=== PATIENT | male | born 1945 | race African-American/Black ===

== ENCOUNTER 2016-12-31 23:14 | Inpatient (IN) | payer MEDICARE ==
[2017-01-01] MEDS ORDERED: NORMAL SALINE 1000 ML 500 ML IV ONE (01:27)
--- NOTE | 2017-01-01 01:27 | ER Document Report ---
ED General - General Chief Complaint: Breathing Difficulty Stated Complaint: DIFFICULTY BREATHING Time Seen by Provider: 01/01/17 01:12 Notes: Patient is a 71-year-old male with past medical history of hypertension, hyperlipidemia, multiple myeloma currently on chemotherapy who presents with 3 days of a cough, mild intermittent shortness of breath not present at this time , and wheezing. Denies any history of similar symptoms in the past. States he has felt hot at home but has not recorded temperature. He has not contacted his primary care doctor or oncologist regarding today's concerns. He denies any history of similar symptoms in the past. No history of asthma or COPD. Nothing improves or worsens his symptoms. Patient is visiting from [place]. TRAVEL OUTSIDE OF THE [place] IN LAST 30 DAYS: No - Related Data Allergies/Adverse Reactions: No Known Allergies Allergy (Unverified 01/01/17 04:58) Past Medical History - General Information source: Patient - Social History Smoking Status: Never Smoker Frequency of alcohol use: None Drug Abuse: None Lives with: Spouse/Significant other Family History: Reviewed & Not Pertinent Renal/ Medical History: Denies: Hx Peritoneal Dialysis Review of Systems - Review of Systems Notes: Constitutional: Positive for fever. HENT: Negative for sore throat. Eyes: Negative for visual changes. Cardiovascular: Negative for chest pain. Respiratory: Negative for shortness of breath. Positive for cough Gastrointestinal: Negative for abdominal pain, vomiting or diarrhea. Genitourinary: Negative for dysuria. Musculoskeletal: Negative for back pain. Skin: Negative for rash. Neurological: Negative for headaches, weakness or numbness. 10 point ROS negative except as marked above and in HPI. Physical Exam - Vital signs Vitals: Temp Pulse Resp BP Pulse Ox 100.2 F 121 H 22 H 115/82 89 L 12/31/16 23:52 12/31/16 23:52 12/31/16 23:52 12/31/16 23:52 12/31/16 23:52 Interpretation: Tachycardic, Tachypneic Notes: PHYSICAL EXAMINATION: GENERAL: Mildly ill in appearance and in no acute distress HEAD: Atraumatic, normocephalic. EYES: Pupils equal round and reactive to light, extraocular movements intact, sclera anicteric, conjunctiva are normal. ENT: nares patent, oropharynx clear without exudates. Moderately dry mucous membranes. NECK: Normal range of motion, supple without lymphadenopathy LUNGS: Scattered rales in all lung smith with a scant expiratory wheeze. Mild tachypnea. No distress. HEART: Regular rate and rhythm without murmurs ABDOMEN: Soft, nontender, normoactive bowel sounds. No guarding, no rebound. No masses appreciated. EXTREMITIES: Normal range of motion, no pitting or edema. No cyanosis. NEUROLOGICAL: No focal neurological deficits. Moves all extremities spontaneously and on command. PSYCH: Normal mood, normal affect. SKIN: Warm, Dry, normal turgor, no rashes or lesions noted. Course - Re-evaluation Re-evalutation: 01/01/17 01:23 Patient presents with 3-4 days of cough without sputum production, sinus pressure and wheezing. He does have history of multiple myeloma and is actively on chemotherapy last dose was 5 days ago. Patient arrives mildly tachypneic, somewhat ill in appearance but otherwise nontoxic in appearance. Initial heart rate in triage was 121 although the time of my assessment on cardiac nurse specialist his heart rate is 98. Saturating 97% on room air. Lung examination shows scattered expiratory wheezing and diffuse rales. Slightly diminished in the right middle lobe. Clinical history is most consistent with likely a viral infection although given his tachycardia and immune suppressed nature concern for possible pneumonia, will proceed with labs, chest x-ray, fluids and reassess. Of note, patient denies any pleuritic pain, any shortness of breath, making an acute pulmonary embolus unlikely. 01/01/17 03:09 CXR shows findings consistent with a multifocal pneumonia. Patient remains mildly tachycardic, tachypneic. Will give levofloxacin and ceftriaxone and plan for admission. - Vital Signs Vital signs: Temp Pulse Resp BP Pulse Ox 99.5 F 121 H 28 H 125/62 95 01/01/17 05:04 12/31/16 23:52 01/01/17 05:01 01/01/17 05:01 01/01/17 05:01 - Laboratory Result Diagrams: 01/01/17 01:45 01/01/17 01:45 Laboratory results interpreted by me: 01/01/17 01/01/17 01/01/17 01:45 01:45 01:45 RBC 4.15 L Hgb 13.2 L RDW 14.6 H Plt Count 147 L Band Neutrophils % 2 L Lymphocytes % (Manual) 7 L Monocytes % (Manual) 18 H Abs Monocytes (Manual) 1.6 H Sodium 134.1 L Glucose 111 H Total Protein 6.2 L Albumin 3.3 L - Diagnostic Test Radiology reviewed: Image reviewed, Reports reviewed Radiology results interpreted by me: 01/01/17 03:11 Chest x-ray: Multifocal pneumonia. - EKG Interpretation by Me Additional EKG results interpreted by me: 01/01/17 06:01 Sinus rhythm. Rate 99. Frequent premature ventricular contractions. QTC is 457. Discharge - Discharge Clinical Impression: Multifocal pneumonia, Tachypnea Sepsis Qualifiers: Sepsis type: sepsis due to unspecified organism Qualified Code(s): A41.9 - Sepsis, unspecified organism Multiple myeloma Qualifiers: Multiple myeloma remission status: not in remission Qualified Code(s): C90.00 - Multiple myeloma not having achieved remission Condition: Fair Disposition: ADMITTED INPATIENT Admitting Provider: [facility] Unit Admitted: [facility]
[2017-01-01 02:17] LABS: ANION GAP 10 (5-19); BLOOD UREA NITROGEN 14 mg/dL (7-20); CALCIUM 8.5 mg/dL (8.4-10.2); CARBON DIOXIDE 25 mmol/L (22-30); CHLORIDE 99 mmol/L (98-107); CREATININE RESULT 0.89 mg/dL (0.52-1.25); GLUCOSE 111 mg/dL (75-110); POTASSIUM 4.1 mmol/L (3.6-5.0); SODIUM 134.1 mmol/L (137-145)
--- NOTE | 2017-01-01 02:22 | RADIOLOGY REPORT (SQ) ---
EXAM DESCRIPTION: CHEST SINGLE VIEW COMPLETED DATE/TIME: 01/01/2017 2:02 am REASON FOR STUDY: sob COMPARISON: None. EXAM PARAMETERS: NUMBER OF VIEWS: One view. TECHNIQUE: Single frontal radiographic view of the chest acquired. RADIATION DOSE: NA LIMITATIONS: None. FINDINGS: LUNGS AND PLEURA: Mild mixed interstitial and airspace opacities of both lung smith. Sma ll atelectasis or scar of the left lower lobe. Moderate lung volumes. MEDIASTINUM AND HILAR STRUCTURES: No masses. Contour normal. HEART AND VASCULAR STRUCTURES: Heart normal in size. Normal vasculature. BONES: No acute findings. HARDWARE: Right internal jugular mini port central line tip at the cavoatrial junction. OTHER: No other significant finding. IMPRESSION: Mild mixed interstitial and airspace opacities. Differential diagnosis includes mild-to -moderate pulmonary edema, multifocal pneumonia, and/or chronic interstitial lung disease. TECHNICAL DOCUMENTATION: JOB ID: [id number]
[2017-01-01 02:30] LABS: TROPONIN I < 0.012 ng/mL
[2017-01-01 02:44] LABS: HEMOGLOBIN 13.2 g/dL (13.5-17.0); HGB HCT DIFFERENCE 0.6; MEAN CORPUSCULAR HEMOGLOBIN 31.7 pg (27.0-33.4); MEAN CORPUSCULAR HGB CONC 33.7 g/dL (32.0-36.0); MEAN CORPUSCULAR VOLUME 94 fl (80-97); RED BLOOD COUNT 4.15 10^6/uL (4.35-5.55); RED CELL DISTRIBUTION WIDTH 14.6 % (11.5-14.0); WHITE BLOOD COUNT 8.8 10^3/uL (4.0-10.5)
[2017-01-01 03:00] LABS: BAND NEUTROPHILS % (MANUAL) 2 % (3-5); BASOPHILS % (MANUAL) 0 % (0-2); EOSINOPHILS % (MANUAL) 0 % (0-6); LYMPHOCYTES % (MANUAL) 7 % (13-45); TOTAL CELLS COUNTED 100
[2017-01-01 03:01] LABS: RBC MORPHOLOGY COMMENT NORMO-CYTIC/CHROMIC
[2017-01-01] MEDS ORDERED: LEVOFLOXACIN 750 MG/D5W RTU 150 ML IV ONE (03:08)
[2017-01-01] MEDS ORDERED: CEFTRIAXONE 1 GM/D5W RTU 50 ML IV ONE (03:09)
[2017-01-01] MEDS ORDERED: NORMAL SALINE 1000 ML 1,000 ML IV ONE (03:14)
[2017-01-01] MEDS ORDERED: GUAIFENESIN SYRP 200 MG/10 ML UDC PO PRN (04:45)
[2017-01-01] MEDS ORDERED: IPRATROPIUM/ALBUTEROL 0.5-2.5 MG/3 ML AMPUL NEB PRN (04:45)
[2017-01-01] MEDS ORDERED: NORMAL SALINE 1000 ML 1,000 ML IV PRN ×3 (04:51→10:18)
[2017-01-01] MEDS ORDERED: PROMETHAZINE HCL 25 MG TABLET PO PRN (04:54)
[2017-01-01] MEDS ORDERED: MAGNESIUM HYDROXIDE SUSP 30 ML UDCUP PO PRN (04:55)
[2017-01-01] MEDS ORDERED: VANCOMYCIN HCL 0 MG in DEXTROSE 5%-WATER 250 ML IV NR (05:00)
[2017-01-01 05:06] LABS: ADD ON TESTING BLD IN LAB ACKNOWLEDGE
--- NOTE | 2017-01-01 05:06 | PDOC H&P ---
History of Present Illness Admission Date/PCP: 01/01/17 03:42 OOT Patient complains of: Difficulty breathing History of Present Illness: LUDMILA FAJARDO is a 71 year old -[place] male, without chronic underlying pulmonary disease, but currently undergoing chemotherapy for multiple myeloma, last session 5 days ago, who presents to the emergency room for evaluation of a 3-4 day history of dry cough, worsening shortness of breath , in particular with much of activity, sinus pressure, and wheezing. Initial heart rate in triage was 121, saturating 97% on room air. Denies fever chills, nausea vomiting, diarrhea or dysuria. Patient has been discussed with emergency room physician who evaluated the patient. Recently traveled with his from [place] to visit his son. Laboratory results are listed in [employer] and are reviewed. X-ray summary results are listed below, with full report(s) reviewed. . EKG reviewed. No old EKG available for comparison. Social history/personal habits: . Has children. Retired. No use of alcohol tobacco or illicit drugs. Allergies/adverse reactions are listed in [employer] and are reviewed. Home medications initially autopopulated into [facility] may not accurately reflect patient's true medications, dosages, and/or frequencies. environmental field services technician to reconcile medications. Unfortunately, patient not certain of all medications/dosages/frequencies. REVIEW OF SYSTEMS: Constitutional: No fever or chills. Eyes: No vision complaints. ENT: No swallowing problems or complaints. Denies hearing loss. Pulmonary: See history and present illness. Cardiovascular: No current complaints, including chest pain. Gastrointestinal: No current complaints, including nausea or vomiting. Skin: No current complaints, including rashes. Hematologic: Denies easy bruising. Neurologic: No current complaints, including numbness or tingling. Musculoskeletal: Mild arthritis. Psychiatric: Denies anxiety or depression. Endocrine: No current complaints, including polyuria. Genitourinary: No current complaints, including dysuria. PHYSICAL EXAMINATION: 6 feet tall. 91.8 kg. BMI 27.4 kg/m. Blood pressure 110/75. Pulse 84 and regular. 94% saturation on room air. Respirations are 21 and unlabored. Temperature 100.2. Slightly overweight otherwise well-nourished well-developed -Dutch male who appears not to feel very well. Otherwise, pleasant awake alert and cooperative. Mildly anxious, without agitation. Slightly fatigued appearance. Son and are present at his side; patient approves. Skin is warm and dry. No grossly obvious evidence of rash in areas of skin examined. No subcutaneous nodules palpated. ENT: Hearing grossly normal to normal conversation. Tongue midline on protrusion pink and slightly moist. Eyes: No scleral icterus. Pupils equal and reactive to light at 3 mm. Leith-Hatfield conjunctivae. Neck is supple and nontender to gentle active range of motion and palpation. Midline trachea. No palpable thyroid nodule mass enlargement or tenderness. Lymphatic: No palpable cervical or clavicular nodes. Neck and lymphatic exams limited by patient body habitus. Psychiatric: Reasonable insight into acute and chronic medical issues. Oriented to time location and why here. Lungs: Auscultation reveals slightly coarse breath sounds bilaterally. No use of accessory respiratory muscles. Perhaps slightly decreased breath sounds right mid lung field. Cardiovascular: Heart regular rate and rhythm, without gallop murmur or rub. No carotid or abdominal aortic bruits. No ankle or pedal edema. Palpable dorsalis pedis pulses. Abdomen:soft slightly distended nontender with positive bowel sounds. Unable to adequately evaluate abdomen for masses or organomegaly due to distention. Extremities: Feet are warm and dry. No calf tenderness to compression. No grossly obvious visual evidence of calf swelling. Gentle manipulation of lower extremities fails to reveal any obvious evidence of injury or instability to knees hips or ankles. Neurologic: Moves upper extremities grossly normally. Patellar reflexes absent. Absent Babinski. Light touch is intact at feet. Dorsiflexion and plantarflexion of feet 5 / 5 and symmetric. Past Medical History Cardiac Medical History: Reports: Congestive Heart Failure, Myocardial Infarction, Hyperlipidema, Hypertension Denies: Atrial Fibrillation, DVT, Pulmonary Embolism Pulmonary Medical History: Denies: Asthma, Chronic Obstructive Pulmonary Disease (COPD), Sleep Apnea EENT Medical History: Denies: Eyes, Ears, Throat Neurological Medical History: Denies: Hemorrhagic CVA, Ischemic CVA, Seizures Endocrine Medical History: Denies: Diabetes Mellitus Type 1, Diabetes Mellitus Type 2, Hyperthyroidism, Hypothyroidism Renal/ Medical History: Reports: None Malignancy Medical History: Reports: Other - Multiple myeloma, undergoing active chemotherapy. GI Medical History: Denies: Cirrhosis, Gastroesophageal Reflux Disease, Hepatitis, Peptic Ulcer Disease Musculoskeltal Medical History: Reports: Arthritis Skin Medical History: Reports: None Psychiatric Medical History: Denies: Alcohol Dependency, Depression, General Anxiety Disorder, Substance Abuse, Tobacco Dependency Infectious Medical History: Denies: Clostridium Difficile, Hepatitis B, Hepatitis C, Methicillin- Resistant Staph Aureus Past Surgical History Past Surgical History: Reports: None Social History Information Source: Patient, Emergency Med Personnel, [facility] Records Lives with: Spouse/Significant other Smoking Status: Unknown if Ever Smoked Frequency of Alcohol Use: None Drugs: None - Advance Directive Resuscitation Status: Full Code Surrogate healthcare decision maker:: Family History Parental Family History Reviewed: Yes - Father of gunshot wound; mother of old age. Children Family History Reviewed: Yes - Healthy Sibling(s) Family History Reviewed.: Yes - Hypertension Medication/Allergy Home Medications: Acyclovir [Zovirax 200 mg Capsule] 200 mg PO Q8 01/01/17 Aspirin [Ecotrin 325 mg EC Tablet] 325 mg PO DAILY 01/01/17 Calcium Carbonate/Vitamin D3 [Calcium 600 + Vit D 400 Tablet] 1 tab PO DAILY 11/13 Carvedilol [Coreg 3.125 mg Tablet] 3.125 mg PO Q12 01/01/17 Dexamethasone [Decadron 4 mg Tablet] 4 mg PO ASDIR 01/01/17 Furosemide [Lasix 20 mg Tablet] 20 mg PO DAILY 01/01/17 Hydrocodone Bit/Acetaminophen [Hydrocodon-Acetaminophn 10-325] 1 tab PO Q6HP PRN 01/01/17 Lenalidomide [Revlimid] 15 mg PO ASDIR 01/01/17 Lisinopril [Prinivil 10 mg Tablet] 10 mg PO DAILY 01/01/17 Simvastatin 40 mg PO DAILY 01/01/17 Spironolactone [Aldactone 25 mg Tablet] 25 mg PO DAILY 01/01/17 Colchicine [Colcrys 0.6 mg Tablet] 0.6 mg PO Q12 #10 tablet 01/04/17 Levofloxacin [Levaquin 750 mg Tablet] 750 mg PO DAILY #10 tab 01/04/17 Prednisone [Deltasone 20 mg Tablet] 40 mg PO DAILY #10 tablet 01/04/17 Allergies/Adverse Reactions: No Known Allergies Allergy (Unverified 01/01/17 04:58) Physical Exam Vital Signs: Temp Pulse Resp BP Pulse Ox 100.2 F 121 H 23 H 103/60 96 12/31/16 23:52 12/31/16 23:52 01/01/17 02:01 01/01/17 02:01 01/01/17 02:01 Results Impressions: Chest X-Ray 01/01/17 01:13 IMPRESSION: Mild mixed interstitial and airspace opacities. Differential diagnosis includes [id number] pulmonary edema, multifocal pneumonia, and/ or chronic interstitial lung disease. Assessment & Plan - Diagnosis (1) CHF (congestive heart failure) Qualifiers: Congestive heart failure type: unspecified congestive heart failure type Congestive heart failure chronicity: chronic Qualified Code(s): I50.9 - Heart failure, unspecified Is this a current diagnosis for this admission?: YesPlan: No evidence of acute exacerbation of same. Resume home medications as appropriate once these have been determined and reviewed. (2) HLD (hyperlipidemia) Qualifiers: Hyperlipidemia type: unspecified Qualified Code(s): E78.5 - Hyperlipidemia, unspecified Is this a current diagnosis for this admission?: YesPlan: Resume home medications as appropriate once these have been determined and reviewed. (3) HTN (hypertension) Qualifiers: Hypertension type: essential hypertension Qualified Code(s): I10 - Essential (primary) hypertension Is this a current diagnosis for this admission?: YesPlan: Resume home medications as appropriate once these have been determined and reviewed. 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 Incentive spirometry twice a day. As needed DuoNeb's. Antibiotics will consist of intravenous vancomycin and Levaquin, along with cefepime, given his immunosuppressed state. Pharmacy to assist with vancomycin dosing. I strongly encouraged patient to notify staff should patient feel that breathing is worsening. Patient is a full code. I have strongly encouraged patient not to get out of bed without notifying staff , to avoid a fall with injury. Knee high SCDs for DVT prophylaxis, along with subcutaneous Lovenox. Impression and plans were discussed with patient and son, all of whom concur Time spent in evaluation and management of patient: 67 minutes. (6) Sepsis Qualifiers: Sepsis type: sepsis due to unspecified organism Qualified Code(s): A41.9 - Sepsis, unspecified organism Is this a current diagnosis for this admission?: Yes (7) Multiple myeloma Qualifiers: Multiple myeloma remission status: not in remission Qualified Code(s ): C90.00 - Multiple myeloma not having achieved remission Is this a current diagnosis for this admission?: YesPlan: Oncology consult. - Time Time Spent: 50 to 70 Minutes Anticipated discharge: Home Within: Other - Inpatient Certification Based on my medical assessment, after consideration of the patient's comorbidities, presenting symptoms, or acuity I expect that the services needed warrant INPATIENT care.: Yes I certify that my determination is in accordance with my understanding of Medicare's requirements for reasonable and necessary INPATIENT services [42 CFR 412.3e].: Yes Medical Necessity: Significant Comorbidiites Make Outpatient Treatment Too Risky , Need Close Monitoring Due to Risk of Patient Decompensation, Need For IV Fluids, Need for Nebulizer Therapy and Monitoring of Response, Need for IV Antibiotics, Risk of Diagnosis Which Will Require Inpatient Eval/Care/Monitoring Post Hospital Care: D/C or Transfer Summary
[2017-01-01] MEDS ORDERED: VANCOMYCIN HCL INJ 1000 MG VIAL IV PRN (05:15)
[2017-01-01 05:26] LABS: ALANINE AMINOTRANSFERASE 30 U/L (21-72); ALBUMIN 3.3 g/dL (3.5-5.0); ALKALINE PHOSPHATASE 68 U/L (38-126); ASPARTATE AMINO TRANSFERASE 17 U/L (17-59); BILIRUBIN,DIRECT 0.4 mg/dL (0.0-0.4); BILIRUBIN,TOTAL 0.8 mg/dL (0.2-1.3); MAGNESIUM 1.9 mg/dL (1.6-2.3); TOTAL PROTEIN 6.2 g/dL (6.3-8.2)
[2017-01-01] MEDS ORDERED: VANCOMYCIN HCL 2,000 MG in DEXTROSE 5%-WATER 500 ML IV ONE ×2 (06:00→08:00)
[2017-01-01 07:08] LABS: ANION GAP 8 (5-19); BLOOD UREA NITROGEN 13 mg/dL (7-20); CALCIUM 7.9 mg/dL (8.4-10.2); CARBON DIOXIDE 24 mmol/L (22-30); CHLORIDE 102 mmol/L (98-107); CREATININE RESULT 0.77 mg/dL (0.52-1.25); GLUCOSE 100 mg/dL (75-110); POTASSIUM 4.7 mmol/L (3.6-5.0); SODIUM 133.7 mmol/L (137-145)
[2017-01-01] MEDS ORDERED: VANCOMYCIN HCL 1,000 MG in DEXTROSE 5%-WATER 250 ML IV ONE (08:00)
--- NOTE | 2017-01-01 08:12 | EKG REPORT ---
SEVERITY:- ABNORMAL ECG - SINUS TACHYCARDIA MULTIPLE VENTRICULAR PREMATURE COMPLEXES LEFT VENTRICULAR HYPERTROPHY : Confirmed by: Nixon Whyte MD 01-Jan-2017 08:11:37
[2017-01-01 11:09] LABS: APPEARANCE,URINE CLEAR; BILIRUBIN,URINE NEGATIVE (NEGATIVE); GLUCOSE, URINE 50 mg/dL (NEGATIVE); KETONES,URINE TRACE mg/dL (NEGATIVE); LEUKOCYTE ESTERASE,URINE NEGATIVE (NEGATIVE); NITRITE,URINE NEGATIVE (NEGATIVE); PROTEIN,URINE NEGATIVE (NEGATIVE); URINE SPECIFIC GRAVITY 1.017
[2017-01-01] MEDS: ENOXAPARIN SODIUM INJ 40 MG/0.4 ML DISP.SYRIN SUBCUT SCH (13:02)
[2017-01-01] MEDS: DOCUSATE SODIUM 100 MG CAPSULE PO SCH ×2 (13:03→17:49)
[2017-01-01] MEDS ORDERED: HYDROCODONE/ACETAMINOPHEN 10-325 MG TABLET PO PRN (14:43)
[2017-01-01] MEDS: VANCOMYCIN HCL 1,000 MG in DEXTROSE 5%-WATER 250 ML IV SCH ×2 (14:59→21:42)
--- NOTE | 2017-01-01 16:08 | CONSULTATION REPORT E ---
Consultation Report NAME: LUDMILA FAJARDO : 1945 AGE: 71Y DATE: 01/01/2017 315 A TO: BEVERLEY MERIDA M.D. FROM: HERB CABALLERO M.D. Requesting Physician REASON FOR CONSULTATION: The patient admitted with possible pneumonia. HISTORY OF PRESENT ILLNESS: He tells me that he is in transit, visiting his son here in [place], [place]. He is also scheduled to go to [place], [place], to visit his other son. He tells me his next chemotherapy cycle begins middle of December. He was diagnosed with multiple myeloma about 7 months ago which involved his left shoulder. He states that following a couple of cycles of chemotherapy his left shoulder symptoms improved and doctors were very happy with the results. He was not able to tell me exactly the names of the regimen, but it appears to be a Velcade based regimen. He has a pill that he takes by mouth included in the chemotherapy, also Revlimid which he takes for 14 days out of every 21 days. He was admitted with symptoms of difficulty breathing. He feels a lot better at the time I was seeing him today. PAST MEDICAL HISTORY: As stated above, includes a history of multiple myeloma. He has a history of coronary artery disease, congestive heart failure, COPD. PHYSICAL EXAMINATION: GENERAL: He is an elderly man. He is not acutely ill looking. He was seen breathing comfortably in bed. VITAL SIGNS: His T-max is 100.2, respiratory rate 42 per minute, blood pressure 103/60, heart rate 80 per minute. LABORATORY DATA: His chest x-ray January 01, 2017: Mixed and interstitial airspace opacity. Differential diagnosis includes mild to moderate pulmonary edema, multifocal pneumonia, chronic interstitial lung disease. Labs: White count is 8.8, hemoglobin 13.2, platelet count 147. Sodium 134, potassium 4.1, calcium 8.5, total protein 6.2, albumin 3.3. IMPRESSION/PLAN: The patient is a 71-year-old man who was admitted with possible upper respiratory tract infection in the setting of underlying multiple myeloma. It is unusual for patients with multiple myeloma to present with upper respiratory infection. I agree with his treatment so far. Antibiotics should be maximized. When afebrile he should be switched to oral antibiotics and possibly continued over the next 10 days. His blood counts are reasonable. He returns to his primary oncologist in about 2 weeks and that should be adequate. I thank you for this consultation and allowing me to be part of his clinical care. DICTATING PHYSICIAN: BEVERLEY MERIDA M.D. [id number] [id number] ID: [id number] JOB#: [id number] ACCT: [id number] cc:BEVERLEY MERIDA M.D. >
[2017-01-01] MEDS: CARVEDILOL 3.125 MG TABLET PO SCH (21:41)
[2017-01-01] MEDS: SIMVASTATIN 40 MG TABLET PO SCH (21:41)
[2017-01-01] MEDS: ACYCLOVIR 200 MG CAPSULE PO SCH (21:41)
[2017-01-01] MEDS: CEFEPIME 2 GM/D5W RTU 2 GM/50 ML RTUPB IV SCH (21:42)
[2017-01-01] MEDS: GUAIFENESIN 600 MG TABLET.SA PO SCH (21:42)
[2017-01-01] MEDS: LEVOFLOXACIN 750 MG/D5W RTU 750 MG/150 ML RTUPB IV SCH (21:50)
[2017-01-02] MEDS: VANCOMYCIN HCL 1,000 MG in DEXTROSE 5%-WATER 250 ML IV SCH (05:44)
[2017-01-02] MEDS: ACYCLOVIR 200 MG CAPSULE PO SCH ×3 (05:44→21:15)
[2017-01-02 06:16] LABS: HEMATOCRIT 33.4 % (37.9-51.0); HEMOGLOBIN 11.3 g/dL (13.5-17.0); HGB HCT DIFFERENCE 0.5; MEAN CORPUSCULAR HGB CONC 33.8 g/dL (32.0-36.0); MEAN CORPUSCULAR VOLUME 95 fl (80-97); RED BLOOD COUNT 3.52 10^6/uL (4.35-5.55); WHITE BLOOD COUNT 5.3 10^3/uL (4.0-10.5)
[2017-01-02 06:40] LABS: BAND NEUTROPHILS % (MANUAL) 1 % (3-5); BASOPHILS % (MANUAL) 0 % (0-2); EOSINOPHILS % (MANUAL) 4 % (0-6); LYMPHOCYTES % (MANUAL) 15 % (13-45); TOTAL CELLS COUNTED 100
[2017-01-02 06:41] LABS: ANISOCYTOSIS SLIGHT; BURR CELLS SLIGHT; POIKILOCYTOSIS SLIGHT; POLYCHROMASIA SLIGHT; TOXIC GRANULATION SLIGHT
[2017-01-02 06:42] LABS: OVALOCYTES SLIGHT
[2017-01-02 07:02] LABS: ANION GAP 7 (5-19); BLOOD UREA NITROGEN 8 mg/dL (7-20); CALCIUM 7.6 mg/dL (8.4-10.2); CARBON DIOXIDE 24 mmol/L (22-30); CHLORIDE 104 mmol/L (98-107); CREATININE RESULT 0.67 mg/dL (0.52-1.25); GLUCOSE 93 mg/dL (75-110); POTASSIUM 4.1 mmol/L (3.6-5.0)
[2017-01-02] MEDS: ENOXAPARIN SODIUM INJ 40 MG/0.4 ML DISP.SYRIN SUBCUT SCH (09:48)
[2017-01-02] MEDS: ASPIRIN 325 MG TABLET, ENT COATED PO SCH (09:49)
[2017-01-02] MEDS: CALCIUM CARBONATE 250 MG/VITAMIN D3 125 UNIT TABLET PO SCH (09:49)
[2017-01-02] MEDS: GUAIFENESIN 600 MG TABLET.SA PO SCH ×2 (09:50→21:16)
[2017-01-02] MEDS: CARVEDILOL 3.125 MG TABLET PO SCH ×2 (09:50→21:16)
[2017-01-02] MEDS: DOCUSATE SODIUM 100 MG CAPSULE PO SCH ×2 (09:50→17:38)
[2017-01-02] MEDS: LISINOPRIL 10 MG TABLET PO SCH (09:50)
[2017-01-02] MEDS: FUROSEMIDE 20 MG TABLET PO SCH (09:51)
[2017-01-02] MEDS: SPIRONOLACTONE 25 MG TABLET PO SCH (09:51)
[2017-01-02] MEDS: CEFEPIME 2 GM/D5W RTU 2 GM/50 ML RTUPB IV SCH ×2 (09:52→21:14)
[2017-01-02] MEDS ORDERED: (PENDING PHARMACY ID) (Calcium Carbonate/Vitamin D3 [Calcium 600 + Vit D 400 Tablet] 1 TAB PO SCH (10:00)
[2017-01-02] MEDS ORDERED: FUROSEMIDE INJ/PF 20 MG/2 ML SDV IV ONE ×2 (10:15→16:00)
--- NOTE | 2017-01-02 12:23 | PDOC PROGRESS REPORT ---
Subjective Progress Note for:: 01/02/17 Subjective:: Patient denies any new complaints. Physical Exam Vital Signs: Temp Pulse Resp BP Pulse Ox 98.3 F 69 12 115/70 94 01/02/17 04:39 01/02/17 04:39 01/02/17 04:39 01/02/17 04:39 01/02/17 04:39 Intake & Output 01/01/17 01/02/17 01/03/17 06:59 06:59 06:59 Intake Total 4775 Output Total 1225 Balance 3550 Weight 92.3 kg 90 kg Exam: GENERAL: No acute distress HEENT: Conjunctiva clear, nonicteric, moist mucous membranes, no JVD, midline trachea RESPIRATORY: Bilateral end expiratory wheezes CARDIAC: Regular rate and rhythm, no gallops/rubs; +2/6 SM LLSB ABDOMEN: soft, nondistended, NTTP, +BSx4 EXTREMETIES: No cyanosis, clubbing; 1+ edema NEUROLOGIC: Alert, oriented to person/place/time, CN's grossly intact, no focal deficits SKIN: No rash, wounds PSYCH: Normal mood, normal affect Results Laboratory Results: 01/02/17 05:50 01/02/17 05:50 01/01/17 01/02/17 01/02/17 10:25 05:50 05:50 WBC 5.3 RBC 3.52 L Hgb 11.3 L Hct 33.4 L MCV 95 MCH 32.0 MCHC 33.8 RDW 15.0 H Plt Count 146 L Seg Neutrophils % Not Reportable Lymphocytes % Not Reportable Monocytes % Not Reportable Eosinophils % Not Reportable Basophils % Not Reportable Absolute Neutrophils Not Reportable Absolute Lymphocytes Not Reportable Absolute Monocytes Not Reportable Absolute Eosinophils Not Reportable Absolute Basophils Not Reportable Sodium 135.0 L Potassium 4.1 Chloride 104 Carbon Dioxide 24 Anion Gap 7 BUN 8 Creatinine 0.67 Est GFR ( Amer) > 60 Est GFR (Non-Af Amer) > 60 Glucose 93 Calcium 7.6 L Urine Color YELLOW Urine Appearance CLEAR Urine pH 6.0 Ur Specific [place] 1.017 Urine Protein NEGATIVE Urine Glucose (UA) 50 H Urine Ketones TRACE H Urine Blood NEGATIVE Urine Nitrite NEGATIVE Ur Leukocyte Esterase NEGATIVE Urine WBC (Auto) 1 Urine RBC (Auto) 2 Impressions: Chest X-Ray 01/01/17 01:13 IMPRESSION: Mild mixed interstitial and airspace opacities. Differential diagnosis includes [id number] pulmonary edema, multifocal pneumonia, and/ or chronic interstitial lung disease. Assessment & Plan - Diagnosis (1) Sepsis Qualifiers: Sepsis type: sepsis due to unspecified organism Qualified Code(s): A41.9 - Sepsis, unspecified organism Is this a current diagnosis for this admission?: YesPlan: Patient with sepsis secondary to multifocal pneumonia. (2) Multifocal pneumonia Is this a current diagnosis for this admission?: YesPlan: Multifocal pneumonia likely secondary to atypical organism. Urine Legionella antigen pending Sputum culture pending. Currently on cefepime, Levaquin, and vancomycin secondary to immune compromise status. Aggressive pulmonary toileting and encourage incentive spirometry and flutter valve. (3) Multiple myeloma Qualifiers: Multiple myeloma remission status: not in remission Qualified Code(s): C90.00 - Multiple myeloma not having achieved remission Is this a current diagnosis for this admission?: YesPlan: Appreciate oncology input. Patient is currently receiving chemotherapy as an outpatient in [place]. Patient will need to follow-up with his oncologist upon return to [place]. 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 Patient on Coreg, lisinopril, and lasix as an outpatient. Stop IVF and resume lasix. (6) HLD (hyperlipidemia) Qualifiers: Hyperlipidemia type: unspecified Qualified Code(s): E78.5 - Hyperlipidemia, unspecified Is this a current diagnosis for this admission?: YesPlan: COntinue zocor (7) HTN (hypertension) Qualifiers: Hypertension type: essential hypertension Qualified Code(s): I10 - Essential (primary) hypertension Is this a current diagnosis for this admission?: YesPlan: Currently well controlled. - Time Time Spent with patient: 25-34 minutes Medications reviewed and adjusted accordingly: Yes
[2017-01-02] MEDS: VANCOMYCIN HCL 1,500 MG in DEXTROSE 5%-WATER 250 ML IV SCH ×2 (14:28→21:15)
[2017-01-02] MEDS: ACETAMINOPHEN 325 MG TABLET PO PRN (14:30)
[2017-01-02] MEDS: LEVOFLOXACIN 750 MG/D5W RTU 750 MG/150 ML RTUPB IV SCH (21:14)
[2017-01-02] MEDS: SIMVASTATIN 40 MG TABLET PO SCH (21:15)
[2017-01-03 05:01] LABS: HEMATOCRIT 33.1 % (37.9-51.0); HEMOGLOBIN 11.3 g/dL (13.5-17.0); HGB HCT DIFFERENCE 0.8; MEAN CORPUSCULAR HEMOGLOBIN 31.8 pg (27.0-33.4); MEAN CORPUSCULAR HGB CONC 34.2 g/dL (32.0-36.0); MEAN CORPUSCULAR VOLUME 93 fl (80-97); RED BLOOD COUNT 3.57 10^6/uL (4.35-5.55); RED CELL DISTRIBUTION WIDTH 14.3 % (11.5-14.0); WHITE BLOOD COUNT 6.2 10^3/uL (4.0-10.5)
[2017-01-03] MEDS: ACYCLOVIR 200 MG CAPSULE PO SCH ×3 (05:01→21:07)
[2017-01-03] MEDS: VANCOMYCIN HCL 1,500 MG in DEXTROSE 5%-WATER 250 ML IV SCH ×3 (05:02→21:08)
[2017-01-03 05:19] LABS: ANION GAP 8 (5-19); BLOOD UREA NITROGEN 11 mg/dL (7-20); CALCIUM 8.1 mg/dL (8.4-10.2); CARBON DIOXIDE 25 mmol/L (22-30); CHLORIDE 101 mmol/L (98-107); CREATININE RESULT 0.81 mg/dL (0.52-1.25); GLUCOSE 96 mg/dL (75-110); MAGNESIUM 1.8 mg/dL (1.6-2.3); POTASSIUM 3.9 mmol/L (3.6-5.0); SODIUM 133.8 mmol/L (137-145)
[2017-01-03 05:24] LABS: BAND NEUTROPHILS % (MANUAL) 1 % (3-5); BASOPHILS % (MANUAL) 0 % (0-2); EOSINOPHILS % (MANUAL) 4 % (0-6); LYMPHOCYTES % (MANUAL) 10 % (13-45); TOTAL CELLS COUNTED 100
[2017-01-03 05:25] LABS: ROULEAUX SLIGHT; TOXIC VACUOLATION PRESENT
[2017-01-03 05:26] LABS: ANISOCYTOSIS SLIGHT; POIKILOCYTOSIS SLIGHT
[2017-01-03] MEDS: ACETAMINOPHEN 325 MG TABLET PO PRN (08:50)
--- NOTE | 2017-01-03 09:04 | RADIOLOGY REPORT (SQ) ---
EXAM DESCRIPTION: CHEST PA/LAT COMPLETED DATE/TIME: 01/03/2017 8:37 am REASON FOR STUDY: multifocal pneumonia COMPARISON: AP chest 01/01/2017 EXAM PARAMETERS: NUMBER OF VIEWS: two views TECHNIQUE: Digital Frontal and Lateral radiographic views of the chest acquired. RADIATION DOSE: NA LIMITATIONS: none FINDINGS: LUNGS AND PLEURA: Bronchiectasis and scarring in the right middle lobe and medial aspects of the right and left lung apices. Bandlike scarring left retrocardiac region. No fluffy alveolar infiltrates worrisome for edema. No dense consolidation worrisome for lobar pneum onia. No pleural effusions. No pneumothorax. MEDIASTINUM AND HILAR STRUCTURES: No masses or contour abnormalities. HEART AND VASCULAR STRUCTURES: Heart normal size. No evidence for failure. BONES: Chronic appearing Fracture distal left clavicle with mixed lytic and sclerotic lesion, suspect a pathologic fracture. HARDWARE: Right-sided permanent central line tip superior vena cava OTHER: No other significant finding. IMPRESSION: Probably chronic bronchiectasis and scarring bilaterally Chronic appearing fracture distal 3rd left clavicle with mixed lytic and sclerotic pattern, question pathologic fracture TECHNICAL DOCUMENTATION: JOB ID: [id number]- All Rights Reserved
[2017-01-03] MEDS: CEFEPIME 2 GM/D5W RTU 2 GM/50 ML RTUPB IV SCH ×2 (09:22→21:10)
[2017-01-03] MEDS: CARVEDILOL 3.125 MG TABLET PO SCH ×2 (09:23→21:07)
[2017-01-03] MEDS: FUROSEMIDE 20 MG TABLET PO SCH (09:23)
[2017-01-03] MEDS: LISINOPRIL 10 MG TABLET PO SCH (09:23)
[2017-01-03] MEDS: CALCIUM CARBONATE 250 MG/VITAMIN D3 125 UNIT TABLET PO SCH (09:23)
[2017-01-03] MEDS: ASPIRIN 325 MG TABLET, ENT COATED PO SCH (09:23)
[2017-01-03] MEDS: SPIRONOLACTONE 25 MG TABLET PO SCH (09:24)
[2017-01-03] MEDS: ENOXAPARIN SODIUM INJ 40 MG/0.4 ML DISP.SYRIN SUBCUT SCH (09:24)
[2017-01-03] MEDS: GUAIFENESIN 600 MG TABLET.SA PO SCH ×2 (09:24→21:08)
[2017-01-03] MEDS: DOCUSATE SODIUM 100 MG CAPSULE PO SCH ×2 (09:30→17:41)
[2017-01-03] MEDS ORDERED: PREDNISONE 20 MG TABLET PO ONE (12:15)
[2017-01-03] MEDS ORDERED: COLCHICINE 0.6 MG TABLET PO ONE (12:15)
--- NOTE | 2017-01-03 12:28 | RADIOLOGY REPORT (SQ) ---
EXAM DESCRIPTION: FOOT RIGHT 2 VIEWS COMPLETED DATE/TIME: 01/03/2017 12:08 pm REASON FOR STUDY: swelling, pain COMPARISON: None. NUMBER OF VIEWS: Two views. TECHNIQUE: AP and lateral radiographic images acquired of the right foot. LIMITATIONS: None. FINDINGS: MINERALIZATION: Osteopenic BONES: No fracture. No lytic or blastic lesions. Small plantar calcaneal spur. JOINTS: No effusions. SOFT TISSUES: Mild forefoot soft tissue swelling. No radiopaque foreign body or soft tissue gas. OTHER: No other significant finding. IMPRESSION: Mild forefoot soft tissue swelling. No fracture or malalignment. TECHNICAL DOCUMENTATION: JOB ID: [id number] [employer]- All Rights Reserved
--- NOTE | 2017-01-03 16:07 | PDOC PROGRESS REPORT ---
Subjective Progress Note for:: 01/03/17 Subjective:: Patient complains of right elbow and right ankle swelling. Patient denies chest pain, SOB, n/v, f/c, new onset weakness. Tmax in the last 24 hours is 100 degrees F. Physical Exam Vital Signs: Temp Pulse Resp BP Pulse Ox 99.0 F 83 20 120/62 95 01/03/17 05:03 01/03/17 05:03 01/03/17 05:03 01/03/17 05:03 01/03/17 05:03 Intake & Output 01/02/17 01/03/17 01/04/17 06:59 06:59 06:59 Intake Total 4775 2245 Output Total 1225 900 Balance 3550 1345 Weight 90 kg Exam: GENERAL: No acute distress HEENT: Conjunctiva clear, nonicteric, moist mucous membranes, no JVD, midline trachea RESPIRATORY: Left upper lobe end expiratory wheezes CARDIAC: Regular rate and rhythm, no gallops/rubs; +2/6 SM LLSB ABDOMEN: soft, nondistended, NTTP, +BSx4 EXTREMETIES: No cyanosis, clubbing, edema MUSCULOSKELETAL: Right warm erythematous elbow and ankle NEUROLOGIC: Alert, oriented to person/place/time, CN's grossly intact, no focal deficits SKIN: No rash, wounds PSYCH: Normal mood, normal affect Results Laboratory Results: 01/03/17 04:00 01/03/17 04:00 01/03/17 01/03/17 04:00 04:00 WBC 6.2 RBC 3.57 L Hgb 11.3 L Hct 33.1 L MCV 93 MCH 31.8 MCHC 34.2 RDW 14.3 H Plt Count 178 Seg Neutrophils % Not Reportable Lymphocytes % Not Reportable Monocytes % Not Reportable Eosinophils % Not Reportable Basophils % Not Reportable Absolute Neutrophils Not Reportable Absolute Lymphocytes Not Reportable Absolute Monocytes Not Reportable Absolute Eosinophils Not Reportable Absolute Basophils Not Reportable Sodium 133.8 L Potassium 3.9 Chloride 101 Carbon Dioxide 25 Anion Gap 8 BUN 11 Creatinine 0.81 Est GFR ( Amer) > 60 Est GFR (Non-Af Amer) > 60 Glucose 96 Calcium 8.1 L Magnesium 1.8 01/01/17 10:25 Clean Catch Midstream Legionella Urinary Antigen - Final Impressions: Chest X-Ray 01/01/17 01:13 IMPRESSION: Mild mixed interstitial and airspace opacities. Differential diagnosis includes [id number] pulmonary edema, multifocal pneumonia, and/ or chronic interstitial lung disease. Assessment & Plan - Diagnosis (1) Sepsis Qualifiers: Sepsis type: sepsis due to unspecified organism Qualified Code(s): A41.9 - Sepsis, unspecified organism Is this a current diagnosis for this admission?: YesPlan: Patient with sepsis secondary to multifocal pneumonia. All cultures are currently negative (2) Multifocal pneumonia Is this a current diagnosis for this admission?: YesPlan: Multifocal pneumonia likely secondary to atypical organism. Urine Legionella antigen negative Sputum culture pending. Currently on cefepime, Levaquin, and vancomycin secondary to immune compromise status. Aggressive pulmonary toileting and encourage incentive spirometry and flutter valve. (3) Multiple myeloma Qualifiers: Multiple myeloma remission status: not in remission Qualified Code(s ): C90.00 - Multiple myeloma not having achieved remission Is this a current diagnosis for this admission?: YesPlan: Appreciate oncology input. Patient is currently receiving chemotherapy as an outpatient in [place]. Patient will need to follow-up with his oncologist upon return to [place]. 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 On Coreg, lisinopril, and lasix. Currently compensated. (6) HLD (hyperlipidemia) Qualifiers: Hyperlipidemia type: unspecified Qualified Code(s): E78.5 - Hyperlipidemia, unspecified Is this a current diagnosis for this admission?: YesPlan: COntinue zocor (7) HTN (hypertension) Qualifiers: Hypertension type: essential hypertension Qualified Code(s): I10 - Essential (primary) hypertension Is this a current diagnosis for this admission?: YesPlan: Currently well controlled. (8) Gout Qualifiers: Gout site: multiple sites Gout etiology: unspecified cause Chronicity: acute Qualified Code(s): M10.9 - Gout, unspecified Is this a current diagnosis for this admission?: YesPlan: Check a uric acid and start patient on colchicine and prednisone. Check x-ray of foot. - Time Time Spent with patient: 25-34 minutes Medications reviewed and adjusted accordingly: Yes Anticipated discharge: Home Within: within 48 hours
[2017-01-03] MEDS: SIMVASTATIN 40 MG TABLET PO SCH (21:07)
[2017-01-03] MEDS: COLCHICINE 0.6 MG TABLET PO SCH (21:07)
[2017-01-03] MEDS: LEVOFLOXACIN 750 MG/D5W RTU 750 MG/150 ML RTUPB IV SCH (21:09)
[2017-01-04 04:30] LABS: ABSOLUTE LYMPHOCYTES (AUTO) 0.7 10^3/uL (0.5-4.7); ABSOLUTE MONOCYTES (AUTO) 1.2 10^3/uL (0.1-1.4); ABSOLUTE NEUT (AUTO) 5.5 10^3/uL (1.7-8.2); BASOPHILS % (AUTO) 0.3 % (0-2); EOSINOPHILS % (AUTO) 0.1 % (0-6); HEMATOCRIT 33.4 % (37.9-51.0); HEMOGLOBIN 11.3 g/dL (13.5-17.0); HGB HCT DIFFERENCE 0.5; LYMPHOCYTES % (AUTO) 9.6 % (13-45); MEAN CORPUSCULAR HEMOGLOBIN 31.5 pg (27.0-33.4); MEAN CORPUSCULAR HGB CONC 33.8 g/dL (32.0-36.0); MEAN CORPUSCULAR VOLUME 93 fl (80-97); MONOCYTES % (AUTO) 16.5 % (3-13); RED BLOOD COUNT 3.58 10^6/uL (4.35-5.55); RED CELL DISTRIBUTION WIDTH 14.3 % (11.5-14.0); SEGMENTED NEUTROPHILS % (AUTO) 73.5 % (42-78); WHITE BLOOD COUNT 7.5 10^3/uL (4.0-10.5)
[2017-01-04] MEDS: VANCOMYCIN HCL 1,500 MG in DEXTROSE 5%-WATER 250 ML IV SCH (05:01)
[2017-01-04] MEDS: ACYCLOVIR 200 MG CAPSULE PO SCH (05:01)
[2017-01-04 05:16] LABS: ANION GAP 10 (5-19); BLOOD UREA NITROGEN 11 mg/dL (7-20); CALCIUM 9.1 mg/dL (8.4-10.2); CARBON DIOXIDE 25 mmol/L (22-30); CHLORIDE 101 mmol/L (98-107); CREATININE RESULT 0.68 mg/dL (0.52-1.25); GLUCOSE 100 mg/dL (75-110); MAGNESIUM 1.8 mg/dL (1.6-2.3); POTASSIUM 4.2 mmol/L (3.6-5.0); SODIUM 136.4 mmol/L (137-145)
[2017-01-04] MEDS: CARVEDILOL 3.125 MG TABLET PO SCH (09:13)
[2017-01-04] MEDS: SPIRONOLACTONE 25 MG TABLET PO SCH (09:13)
[2017-01-04] MEDS: FUROSEMIDE 20 MG TABLET PO SCH (09:13)
[2017-01-04] MEDS: COLCHICINE 0.6 MG TABLET PO SCH (09:13)
[2017-01-04] MEDS: ASPIRIN 325 MG TABLET, ENT COATED PO SCH (09:13)
[2017-01-04] MEDS: CEFEPIME 2 GM/D5W RTU 2 GM/50 ML RTUPB IV SCH (09:13)
[2017-01-04] MEDS: GUAIFENESIN 600 MG TABLET.SA PO SCH (09:13)
[2017-01-04] MEDS: CALCIUM CARBONATE 250 MG/VITAMIN D3 125 UNIT TABLET PO SCH (09:13)
[2017-01-04] MEDS: LISINOPRIL 10 MG TABLET PO SCH (09:13)
[2017-01-04] MEDS: ENOXAPARIN SODIUM INJ 40 MG/0.4 ML DISP.SYRIN SUBCUT SCH (09:13)
[2017-01-04] MEDS: DOCUSATE SODIUM 100 MG CAPSULE PO SCH (09:22)
[2017-01-04 13:02] VITALS: BP 121/65
--- NOTE | 2017-01-04 20:35 | PDOC DISCHARGE SUMMARY ---
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 Is this a current diagnosis for this admission?: Yes (5) CHF (congestive heart failure) Is this a current diagnosis for this admission?: Yes (6) HLD (hyperlipidemia) Is this a current diagnosis for this admission?: Yes (7) HTN (hypertension) Is this a current diagnosis for this admission?: Yes (8) Gout Is this a current diagnosis for this admission?: Yes - Additional Information Resuscitation Status: Full Code Discharge Diet: Cardiac Discharge Activity: Activity As Tolerated, Weigh Daily Home Medications: Acyclovir [Zovirax 200 mg Capsule] 200 mg PO Q8 01/01/17 Aspirin [Ecotrin 325 mg EC Tablet] 325 mg PO DAILY 01/01/17 Calcium Carbonate/Vitamin D3 [Calcium 600 + Vit D 400 Tablet] 1 tab PO DAILY 11/13 Carvedilol [Coreg 3.125 mg Tablet] 3.125 mg PO Q12 01/01/17 Dexamethasone [Decadron 4 mg Tablet] 4 mg PO ASDIR 01/01/17 Furosemide [Lasix 20 mg Tablet] 20 mg PO DAILY 01/01/17 Hydrocodone Bit/Acetaminophen [Hydrocodon-Acetaminophn 10-325] 1 tab PO Q6HP PRN 01/01/17 Lenalidomide [Revlimid] 15 mg PO ASDIR 01/01/17 Lisinopril [Prinivil 10 mg Tablet] 10 mg PO DAILY 01/01/17 Simvastatin 40 mg PO DAILY 01/01/17 Spironolactone [Aldactone 25 mg Tablet] 25 mg PO DAILY 01/01/17 Colchicine [Colcrys 0.6 mg Tablet] 0.6 mg PO Q12 #10 tablet 01/04/17 Levofloxacin [Levaquin 750 mg Tablet] 750 mg PO DAILY #10 tab 01/04/17 Prednisone [Deltasone 20 mg Tablet] 40 mg PO DAILY #10 tablet 01/04/17 History of Present Illness History of Present Illness: H&P for full HPI Hospital Course Hospital Course: Patient is a 71-year-old -[place] male with a past medical history of multiple myeloma who last received chemotherapy approximately 1 week prior to presentation who presented to the emergency department with fever and shortness of breath. Patient was found to have multifocal pneumonia. Patient was placed on broad-spectrum antibiotic coverage and scheduled nebulized treatments. Patient was mildly dehydrated and given IV fluids. However patient became iatrogenically volume overloaded and found to be in acute likely diastolic congestive heart failure. Patient was diuresed adequately with improvement of his symptomatology. CHF education was provided for patient including diet and daily weights. Patient sputum did not reveal any culture bowl organisms and patient was transitioned to Levaquin successfully. Patient however the day prior to discharge developed acute swelling of his right elbow and ankle. X- ray of the ankle revealed no fracture. Uric acid was normal, but patient improved with colchicine and prednisone fostering the idea that this was an acute exacerbation of gout. Patient was much improved and stable for discharge home. He is advised to follow with his primary care physician and oncologist within 1 week of discharge in [place]. Packet was provided for patient with imaging and reports. Physical Exam Vital Signs: Temp Pulse Resp BP Pulse Ox 98.1 F 60 18 121/65 100 01/04/17 12:57 01/04/17 12:57 01/04/17 12:57 01/04/17 12:57 01/04/17 12:57 Intake & Output 01/03/17 01/04/17 01/05/17 06:59 06:59 06:59 Intake Total 3555 2320 300 Output Total 1300 1300 300 Balance 2255 1020 0 Weight 90.3 kg 91 kg Exam: GENERAL: No acute distress HEENT: Conjunctiva clear, nonicteric, moist mucous membranes, no JVD, midline trachea RESPIRATORY: Clear to Auscultation bilaterally CARDIAC: Regular rate and rhythm, no gallops/rubs; +2/6 SM LLSB ABDOMEN: soft, nondistended, NTTP, +BSx4 EXTREMETIES: No cyanosis, clubbing, edema MUSCULOSKELETAL: Market improvement of erythema and swelling. NEUROLOGIC: Alert, oriented to person/place/time, CN's grossly intact, no focal deficits SKIN: No rash, wounds PSYCH: Normal mood, normal affec Results Laboratory Results: 01/04/17 04:00 01/04/17 04:00 01/04/17 01/04/17 04:00 04:00 WBC 7.5 RBC 3.58 L Hgb 11.3 L Hct 33.4 L MCV 93 MCH 31.5 MCHC 33.8 RDW 14.3 H Plt Count 209 Seg Neutrophils % 73.5 Lymphocytes % 9.6 L Monocytes % 16.5 H Eosinophils % 0.1 Basophils % 0.3 Absolute Neutrophils 5.5 Absolute Lymphocytes 0.7 Absolute Monocytes 1.2 Absolute Eosinophils 0.0 Absolute Basophils 0.0 Sodium 136.4 L Potassium 4.2 Chloride 101 Carbon Dioxide 25 Anion Gap 10 BUN 11 Creatinine 0.68 Est GFR ( Amer) > 60 Est GFR (Non-Af Amer) > 60 Glucose 100 Calcium 9.1 Magnesium 1.8 01/01/17 16:25 Sputum Gram Stain - Final 01/01/17 16:25 Sputum Sputum Culture - Final NORMAL LI Impressions: Foot X-Ray 01/03/17 00:00 IMPRESSION: Mild forefoot soft tissue swelling. No fracture or malalignment. Chest X-Ray 01/03/17 06:00 IMPRESSION: Probably chronic bronchiectasis and scarring bilaterally Chronic appearing fracture distal 3rd left clavicle with mixed lytic and sclerotic pattern, question pathologic fracture Qualifiers PATEINT BEING DISCHARGED WITH ANY OF THE FOLLOWING DIAGNOSIS?: Heart Failure HF Pt being discharged on ACEI for LVEF less than 40%?: Yes HF Pt being discharged on ARBS for LVEF less than 40%?: No Reason(s) for not prescribing ARBS:: Not indicated - on eleanor HF Pt with Afib discharged with Warfarin?: No Reason(s) for not prescribing Warfarin:: Not indicated - no fib HF Pt discharged on evidence-based Beta Desiree:: Yes Plan Time Spent: Less than 30 Minutes
== END 2017-01-04 13:31 | disposition home or self-care (01) | DRG 871 ==
LOC: ER 23:14 → UNDOADMIN 01-01 03:42 → EH 01-01 03:42 → 3W 01-01 06:26 → EH 01-01 06:26
PROVIDERS: ADMIT Family Medicine; ATTEND Family Medicine
DX: A41.9 Sepsis, unspecified organism (principal); J18.9 Pneumonia, unspecified organism; I50.31 Acute diastolic (congestive) heart failure; J44.0 Chronic obstructive pulmonary disease with (acute) lower respiratory infection; C90.00 Multiple myeloma not having achieved remission; I11.0 Hypertensive heart disease with heart failure; I25.10 Atherosclerotic heart disease of native coronary artery without angina pectoris; E78.5 Hyperlipidemia, unspecified; M10.9 Gout, unspecified; Z79.82 Long term (current) use of aspirin; Z79.899 Other long term (current) drug therapy
CPT/HCPCS: 36415; 71010; 71020; 80048; 80076; 80202; 81001; 83615; 83735; 83880; 84484; 84550; 85025; 87040; 87070; 87205; 93005; 93010; 94667; 94799; 96360; 99285; J0692; J0696; J1642; J1650; J1940; J1956; J3370; J3490; J7030; J7060; J7512